=== PATIENT | female | born 1950 | race Caucasian/White ===

== ENCOUNTER → 2016-04-25 | Outpatient (CLI) | payer MEDICAID ==
[~2016-04-25] MED LIST: 8 HOUR PAIN RE650 M1 PO; ACEPHEN650 MG R; ACETAMINOPHEN325 MG PO; ARTIFICIAL TEAR15 ML OPHTH; ASCORBIC ACID500 MG PO; CALCIUM CARBON600 MG PO; CARBAMAZEPINE PO; CARBATROL300 MG PO; CLARITIN10 MG PO; DITROPAN5 MG PO; INDERAL20 MG PO; K-TAB 10MEQ10 MEQ PO; K-TAB ER20 MEQ PO; KEPPRA LIQU100 MG/ML PO; LASIX40 M1 PO; MILK OF MA400 MG/5 M PO; MIRALAX17 GM PO; PHENOBARBITAL97.2 MG PO; RESTASIS1 EACH OPHTH; SILACE60 MG/15 M PO; TRIMETHOPRIM100 MG PO; VITAMIN D1000 UNIT PO; [UNRECOGNIZED DRUG - OTHER] PO
[2016-04-25 10:58] LABS: BILIRUBIN URINE NEGATIVE (NEGATIVE); BLOOD URINE 25 /UL (NEGATIVE); COLOR URINE YELLOW (YELLOW); GLUCOSE URINE NEGATIVE (NEGATIVE); KETONE URINE NEGATIVE (NEGATIVE); LEUKOCYTES URINE 500 /UL (NEGATIVE); NITRITE URINE NEGATIVE (NEGATIVE); PROTEIN URINE 15 mg/dL (NEGATIVE); SPEC GRAVITY URINE 1.015 (1.003-1.035); TURBIDITY URINE 2+ (CLEAR); UROBILINOGEN URINE NORMAL (NORMAL)
[2016-04-25 11:12] LABS: RBC URINE 0-2 #/HPF (NEGATIVE)
[2016-04-25 11:17] LABS: BACTERIA URINE MODERATE (NEGATIVE); EPITHELIAL URINE RARE #/HPF (NEGATIVE); MUCUS URINE 2+ (NEGATIVE); YEAST URINE MODERATE (NEGATIVE)
== END | disposition disaster alternative care site (69) ==
LOC: LJOHN2 10:51
PROVIDERS: Internal Medicine
DX: N39.0 Urinary tract infection, site not specified (principal); R39.15 Urgency of urination

== ENCOUNTER → 2016-05-24 | Outpatient (CLI) | payer MEDICAID | END | disposition disaster alternative care site (69) | LOC: LJOHN2 05-23 12:03 | DX: I48.91 Unspecified atrial fibrillation (principal) ==

== ENCOUNTER → 2016-05-25 | Outpatient (CLI) | payer MEDICAID | END | disposition disaster alternative care site (69) | LOC: LJOHN2 07:08 | DX: N39.0 Urinary tract infection, site not specified (principal) ==

== ENCOUNTER → 2016-06-23 | Outpatient (CLI) | payer MEDICAID ==
[2016-06-23 12:40] LABS: BILIRUBIN URINE NEGATIVE (NEGATIVE); BLOOD URINE 25 /UL (NEGATIVE); COLOR URINE YELLOW (YELLOW); GLUCOSE URINE NEGATIVE (NEGATIVE); KETONE URINE NEGATIVE (NEGATIVE); LEUKOCYTES URINE 100 /UL (NEGATIVE); NITRITE URINE POSITIVE (NEGATIVE); PROTEIN URINE 15 mg/dL (NEGATIVE); TURBIDITY URINE 3+ (CLEAR); UROBILINOGEN URINE NORMAL (NORMAL)
[2016-06-23 13:13] LABS: EPITHELIAL URINE 0-2 #/HPF (NEGATIVE)
[2016-06-23 13:14] LABS: AMORPHOUS URINE 2+ (NEGATIVE); BACTERIA URINE MANY (NEGATIVE)
== END ==
LOC: LJOHN2 12:33
PROVIDERS: Internal Medicine
DX: R33.9 Retention of urine, unspecified (principal); N30.90 Cystitis, unspecified without hematuria; R39.15 Urgency of urination; N39.0 Urinary tract infection, site not specified

== ENCOUNTER → 2016-08-25 | Outpatient (CLI) | payer MEDICAID ==
[2016-08-25 09:01] LABS: BILIRUBIN URINE NEGATIVE (NEGATIVE); BLOOD URINE 50 /UL (NEGATIVE); COLOR URINE YELLOW (YELLOW); GLUCOSE URINE NEGATIVE (NEGATIVE); KETONE URINE NEGATIVE (NEGATIVE); LEUKOCYTES URINE 500 /UL (NEGATIVE); NITRITE URINE POSITIVE (NEGATIVE); PROTEIN URINE NEGATIVE (NEGATIVE); TURBIDITY URINE 2+ (CLEAR); UROBILINOGEN URINE NORMAL (NORMAL)
[2016-08-25 09:24] LABS: EPITHELIAL URINE RARE #/HPF (NEGATIVE); RBC URINE RARE #/HPF (NEGATIVE)
[2016-08-25 09:25] LABS: AMORPHOUS URINE 1+ (NEGATIVE); BACTERIA URINE NEGATIVE (NEGATIVE)
== END | disposition disaster alternative care site (69) ==
LOC: LJOHN2 08:03
PROVIDERS: Internal Medicine
DX: R33.9 Retention of urine, unspecified (principal); N39.0 Urinary tract infection, site not specified

== ENCOUNTER → 2016-08-26 | Outpatient (CLI) | payer MEDICAID ==
[2016-08-26 07:35] LABS: ALK PHOS 213 IU/L (33-138); ALT 16 IU/L (12-78); AST 17 IU/L (10-40); BLOOD UREA NITROGEN 9 mg/dL (6-24); CALCIUM 8.3 mg/dL (8.5-10.5); CHLORIDE 96 mMol/L (96-110); CO2 32 mMol/L (22-32); CREATININE 0.4 mg/dL (0.5-1.1); ESTIMATED GFR (MDRD EQUATION) > 60; SODIUM 135 mMol/L (135-145); TOTAL PROTEIN 6.7 g/dL (6.0-8.4)
[2016-08-26 07:36] LABS: TOTAL BILIRUBIN 0.5 mg/dL (0.0-1.5)
== END | disposition disaster alternative care site (69) ==
LOC: LJOHN2 07:15
PROVIDERS: Internal Medicine
DX: R60.0 Localized edema (principal); I48.91 Unspecified atrial fibrillation

== ENCOUNTER → 2016-10-31 | Outpatient (CLI) | payer MEDICAID ==
[2016-10-31 17:28] LABS: BILIRUBIN URINE NEGATIVE (NEGATIVE); BLOOD URINE 50 /UL (NEGATIVE); COLOR URINE YELLOW (YELLOW); GLUCOSE URINE NEGATIVE (NEGATIVE); KETONE URINE NEGATIVE (NEGATIVE); LEUKOCYTES URINE 500 /UL (NEGATIVE); NITRITE URINE POSITIVE (NEGATIVE); PROTEIN URINE 100 mg/dL (NEGATIVE); TURBIDITY URINE 3+ (CLEAR); UROBILINOGEN URINE NORMAL (NORMAL)
[2016-10-31 17:46] LABS: BACTERIA URINE MANY (NEGATIVE); EPITHELIAL URINE 0-2 #/HPF (NEGATIVE)
== END ==
LOC: LJOHN2 17:18
PROVIDERS: Internal Medicine
DX: R33.9 Retention of urine, unspecified (principal); R32 Unspecified urinary incontinence; R39.15 Urgency of urination; N39.0 Urinary tract infection, site not specified